=== PATIENT | female | born 1995 | race Caucasian/White ===

== ENCOUNTER 2018-01-06 05:42 | Emergency (ER) | payer OTHER ==
[2018-01-06 05:56] VITALS: RESP 18
[2018-01-06] MEDS ORDERED: LORazepam 2 MG/ML INJ IV STA (06:23)
[2018-01-06] MEDS ORDERED: MORPHINE SULFATE 2 MG/ML SYRINGE IVP STA (06:23)
[2018-01-06] MEDS ORDERED: ONDANSETRON 4 MG/2 ML VIAL IVP STA (06:23)
[2018-01-06] MEDS ORDERED: LIDOCAINE/EPINEPHR/TETRACAINE 5 ML BOTTLE TOPICAL ONE (06:24)
[2018-01-06] MEDS ORDERED: SODIUM CHLORIDE 0.9% 1,000 ML IV STA (06:25)
--- NOTE | 2018-01-06 06:30 | ED ---
General Adult HPI - General Chief complaint: Skin/Abscess/Foreign Body Stated complaint: Female Time Seen by Provider: 01/06/18 06:12 Source: patient, RN notes reviewed Mode of arrival: ambulatory Limitations: no limitations - History of Present Illness Initial comments: 22-year-old female presenting to the emergency room today with a chief complaint of abscess to the right side labia externa that began 4 days ago. Patient states that noticed a small bump some swelling. Does admit that she went to [facility] yesterday proximally 6 PM. Patient states that the area was drained. They went home. States that began having increased pain. States area is more swollen today. Fianc at bedside stating that started having or click movements started at night. Patient admits that some pain. Denies any other complaints or symptoms. Patient did not begin antibiotics that were prescribed because pharmacy was closed. Patient denies any recent fever, chills, shortness of breath, chest pain, back pain, abdominal pain, nausea or vomiting, constipation or diarrhea, headaches or visual changes, or any other complaints. - Related Data Allergies Allergy/AdvReac Type Severity Reaction Status Date / Time No Known Allergies Allergy Verified 01/06/18 05:57 Review of Systems ROS Statement: Those systems with pertinent positive or pertinent negative responses have been documented in the HPI. ROS Other: All systems not noted in ROS Statement are negative. Past Medical History Past Medical History: No Reported History History of Any Multi-Drug Resistant Organisms: None Reported Past Surgical History: No Surgical Hx Reported Past Psychological History: Anxiety Smoking Status: Current every day smoker Past Alcohol Use History: Rare Past Drug Use History: Marijuana General Exam - General Exam Comments Initial Comments: General: The patient is awake and alert, in no distress, and does not appear acutely ill. Eye: Pupils are equal, round and reactive to light, extra-ocular movements are intact. No nystagmus. There is normal conjunctiva bilaterally. No signs of icterus. Ears, nose, mouth and throat: There are moist mucous membranes and no oral lesions. Neck: The neck is supple, there is no tenderness or JVD. Musculoskeletal: Normal ROM, no tenderness. Strength 5/5. Sensation intact. Pulses equal bilaterally 2+. Neurological: A&O x 3. CN II-XII intact, There are no obvious motor or sensory deficits. Coordination appears grossly intact. Speech is normal. Skin: Skin is warm and dry and no rashes or lesions are noted. Psychiatric: Cooperative, appropriate mood & affect, normal judgment. : SANITARIAN Janna present for exam. Patient does have abscess to the right side external labia measuring approximately 1-2 cm x 1 cm. Incision centrally in this area with no active drainage. Limitations: no limitations Course Vital Signs 01/06/18 01/06/18 05:50 07:18 Temperature 98 F Pulse Rate 126 H 102 H Respiratory 18 18 Rate Blood Pressure 162/100 119/62 O2 Sat by Pulse 98 99 Oximetry Procedures - Procedures Initial comment: SANITARIANNITISH Mccormick present for procedure. Patient has a Bartholin's cyst on the right side. Area was anesthetized locally with topical lidocaine and also 1% lidocaine locally to the area. There was a previous incision site. 11 blade was used to reopen this area. A moderate amount of drainage was removed. Purulent Type drainage. A Word's catheter was inserted. Patient tolerated procedure well Medical Decision Making - Lab Data Result diagrams: 01/06/18 06:44 01/06/18 06:44 Lab Results 01/06/18 01/06/18 Range/Units 06:44 06:44 WBC 10.3 (3.8-10.6) k/uL RBC 4.72 (3.80-5.40) m/uL Hgb 13.2 (11.4-16.0) gm/dL Hct 38.9 (34.0-46.0) % MCV 82.5 (80.0-100.0) fL MCH 28.0 (25.0-35.0) pg MCHC 33.9 (31.0-37.0) g/dL RDW 15.3 (11.5-15.5) % Plt Count 279 (150-450) k/uL Neutrophils % 59 % Lymphocytes % 30 % Monocytes % 6 % Eosinophils % 4 % Basophils % 1 % Neutrophils # 6.0 (1.3-7.7) k/uL Lymphocytes # 3.1 (1.0-4.8) k/uL Monocytes # 0.6 (0-1.0) k/uL Eosinophils # 0.4 (0-0.7) k/uL Basophils # 0.1 (0-0.2) k/uL Sodium 142 (137-145) mmol/L Potassium 4.3 (3.5-5.1) mmol/L Chloride 108 H (98-107) mmol/L Carbon Dioxide 24 (22-30) mmol/L Anion Gap 10 mmol/L BUN 15 (7-17) mg/dL Creatinine 0.64 (0.52-1.04) mg/dL Est GFR (CKD-EPI)AfAm >90 (>60 ml/min/1.73 sqM) Est GFR (CKD-EPI)NonAf >90 (>60 ml/min/1.73 sqM) Glucose 85 (74-99) mg/dL Calcium 9.0 (8.4-10.2) mg/dL Total Bilirubin 0.2 (0.2-1.3) mg/dL AST 19 (14-36) U/L ALT 30 (9-52) U/L Alkaline Phosphatase 63 (38-126) U/L Total Protein 6.8 (6.3-8.2) g/dL Albumin 3.9 (3.5-5.0) g/dL Disposition Clinical Impression: Bartholin's gland abscess Disposition: HOME SELF-CARE Condition: Good Instructions: Abscess (ED) Additional Instructions: Please allow the catheter to fall out on its own. Please continue previously prescribed antibiotic. Please follow-up the family doctor/HEALTH PLAN MANAGER over the next 2 days if there is not improvement. Please return here to the emergency room symptoms increase or worsen. Is patient prescribed a controlled substance at d/c from ED?: No Referrals: None,Stated [Primary Care Provider] - 1-2 days Guille Yuan DO [STAFF PHYSICIAN] - 1-2 days Viola Salcedo MD [STAFF PHYSICIAN] - 1-2 days Time of Disposition: 08:08
[2018-01-06 07:27] LABS: Basophils # (A) 0.1 k/uL (0-0.2); Basophils % (A) 1 %; Eosinophils # (A) 0.4 k/uL (0-0.7); Eosinophils % (A) 4 %; HCT 38.9 % (34.0-46.0); HGB 13.2 gm/dL (11.4-16.0); Lymphocytes # (A) 3.1 k/uL (1.0-4.8); Lymphocytes % (A) 30 %; MCHC 33.9 g/dL (31.0-37.0); MCV 82.5 fL (80.0-100.0); Mean Platelet Volume 6.5; Monocytes # (A) 0.6 k/uL (0-1.0); Monocytes % (A) 6 %; Neutrophils % (A) 59 %; Platelet Count 279 k/uL (150-450); RBC 4.72 m/uL (3.80-5.40); RDW 15.3 % (11.5-15.5); WBC 10.3 k/uL (3.8-10.6)
[2018-01-06 07:37] LABS: ALT 30 U/L (9-52); AST 19 U/L (14-36); Albumin 3.9 g/dL (3.5-5.0); Alkaline Phosphatase 63 U/L (38-126); Anion Gap 10 mmol/L; Blood Urea Nitrogen 15 mg/dL (7-17); Carbon Dioxide 24 mmol/L (22-30); Chloride 108 mmol/L (98-107); Glucose 85 mg/dL (74-99); Potassium 4.3 mmol/L (3.5-5.1); Sodium 142 mmol/L (137-145); Total Bilirubin 0.2 mg/dL (0.2-1.3); Total Protein 6.8 g/dL (6.3-8.2)
[2018-01-06] MEDS ORDERED: LIDOCAINE 1% INJ 10MG/ML (20 ML MDV) SQ STA (07:38)
[2018-01-06] MEDS ORDERED: SULFAMETH-TMP DS STARTER PACK 2 TAB BTL PO STA (08:06)
[2018-01-06 08:31] VITALS: BP 131/65; PULSE 91; TEMP 98.2
== END 2018-01-06 08:36 | disposition home or self-care (01) ==
LOC: EC 05:42
DX: N75.1 Abscess of Bartholin's gland (principal); F17.200 Nicotine dependence, unspecified, uncomplicated
CPT/HCPCS: 99283; 56420; 96374; 96375 ×2; 36415; 80053; 85025; J2060; J2405; J2001; J2270

== ENCOUNTER → 2019-08-17 | Outpatient (CLI) | payer BC ==
--- NOTE | 2019-08-17 12:48 | US ---
EXAMINATION TYPE: US abdomen limited DATE OF EXAM: 08/17/2019 COMPARISON: NONE CLINICAL HISTORY: B18.2 Chronic viral Hepatitis C. EXAM MEASUREMENTS: Liver Length: 13.7cm Gallbladder Wall: 0.1 cm CBD: 0.3 cm Right Kidney: 11.3 x 3.9 x 5.4 cm Pancreas: wnl Liver: wnl Gallbladder: wnl Evidence for sonographic Navas's sign: no CBD: wnl Right Kidney: wnl IMPRESSION: No distinct abnormality seen.
[2019-08-17 13:58] LABS: Basophils % (A) 1 %; Eosinophils # (A) 0.5 k/uL (0-0.7); Eosinophils % (A) 9 %; HCT 44.2 % (34.0-46.0); HGB 14.3 gm/dL (11.4-16.0); Lymphocytes # (A) 1.8 k/uL (1.0-4.8); Lymphocytes % (A) 35 %; MCH 28.7 pg (25.0-35.0); MCHC 32.3 g/dL (31.0-37.0); MCV 88.9 fL (80.0-100.0); Mean Platelet Volume 7.2; Monocytes # (A) 0.3 k/uL (0-1.0); Monocytes % (A) 6 %; Neutrophils # (A) 2.4 k/uL (1.3-7.7); Neutrophils % (A) 47 %; Platelet Count 242 k/uL (150-450); RBC 4.98 m/uL (3.80-5.40); WBC 5.1 k/uL (3.8-10.6)
[2019-08-17 14:06] LABS: Prothrombin Time 10.8 sec (9.0-12.0)
[2019-08-17 14:09] LABS: Bilirubin, Delta 0.3 mg/dL (0.0-0.2); Bilirubin,Unconjugated 0.2 mg/dL (0.0-1.1); Total Bilirubin 0.5 mg/dL (0.2-1.3)
[2019-08-17 19:15] LABS: Hepatitis A Antibody IgM Non-Reactive (Non-Reactive); Hepatitis B Core IgM Non-Reactive (Non-Reactive); Hepatitis B Surface Antigen Non-Reactive (Non-Reactive); Hepatitis C IgG Antibody Reactive (Non-Reactive)
[2019-08-18 14:36] LABS: HCV Qualitative Result DETECTED (Not detected); HCV Quant Log 1.82 (<1.08); HCV Quantitative Result 66 IU/mL (<12)
== END | disposition home or self-care (01) ==
LOC: RADUSWWP 11:58
PROVIDERS: ATTEND Internal Medicine Gastroenterology
DX: B18.2 Chronic viral hepatitis C (principal)
CPT/HCPCS: 76705; 80074; 80076; 81596; 85025; 85610; 87522

== ENCOUNTER → 2020-02-16 | Outpatient (CLI) | payer BC ==
[2020-02-16 11:23] LABS: Basophils % (A) 1 %; Eosinophils # (A) 0.4 k/uL (0-0.7); Eosinophils % (A) 7 %; HCT 43.7 % (34.0-46.0); HGB 14.8 gm/dL (11.4-16.0); Lymphocytes # (A) 1.9 k/uL (1.0-4.8); Lymphocytes % (A) 30 %; MCV 88.1 fL (80.0-100.0); Monocytes # (A) 0.3 k/uL (0-1.0); Monocytes % (A) 5 %; Neutrophils # (A) 3.5 k/uL (1.3-7.7); Neutrophils % (A) 56 %; Platelet Count 201 k/uL (150-450); RBC 4.95 m/uL (3.80-5.40); RDW 12.7 % (11.5-15.5); WBC 6.2 k/uL (3.8-10.6)
[2020-02-16 17:48] LABS: Albumin 4.3 g/dL (3.80-4.90); Albumin/Globulin Ratio 1.79 (1.60-3.17); Bilirubin, Conjugated 0.2 mg/dL (0.20-0.40); Bilirubin,Unconjugated 0.2 mg/dL; Globulin 2.4 g/dL (1.6-3.3); Total Bilirubin 0.4 mg/dL (0.2-1.2); Total Protein 6.7 g/dL (6.2-8.2)
== END | disposition home or self-care (01) ==
LOC: LABWHC1 10:27
PROVIDERS: ATTEND Physician Assistant
DX: B18.2 Chronic viral hepatitis C (principal)
CPT/HCPCS: 36415; 80076; 85025; 87522

== ENCOUNTER 2024-05-20 23:35 | Emergency (ER) | payer BC ==
--- NOTE | 2024-05-21 00:22 | ED ---
Back Pain HPI - General Chief Complaint: Back Pain/Injury Stated Complaint: Back pain, KENDALL Time Seen by Provider: 05/20/24 23:42 Source: patient, RN notes reviewed, old records reviewed Limitations: no limitations - History of Present Illness Initial Comments: There is a 29-year-old female to the ER for evaluation of back pain right lateral spine back pain with no traumatic injury noted. No shortness of breath no cough or congestion no fever or any changes. Patient presented which is back pain worse with movement MD Complaint: back pain -: days(s) Similar Symptoms Previously: Yes Place: home Radiation: none Severity: moderate Severity scale (1-10): 6 Quality: sharp, aching Consistency: constant, intermittent Improves With: none Worsens With: movement Context: while lifting, turning/twisting - Related Data Home Medications Medication Instructions Recorded Confirmed No Known Home Medications 01/06/18 01/06/18 Allergies Allergy/AdvReac Type Severity Reaction Status Date / Time No Known Allergies Allergy Verified 05/20/24 23:39 Review of Systems ROS Statement: Those systems with pertinent positive or pertinent negative responses have been documented in the HPI. ROS Other: All systems not noted in ROS Statement are negative. Past Medical History Past Medical History: No Reported History History of Any Multi-Drug Resistant Organisms: None Reported Past Surgical History: No Surgical Hx Reported Past Psychological History: Anxiety Smoking Status: Current every day smoker Past Alcohol Use History: Rare Past Drug Use History: Marijuana General Exam Limitations: no limitations General appearance: alert, in no apparent distress Head exam: Present: atraumatic, normocephalic, normal inspection Eye exam: Present: normal appearance, PERRL, EOMI. Absent: scleral icterus, conjunctival injection, periorbital swelling ENT exam: Present: normal exam, mucous membranes moist Neck exam: Present: normal inspection. Absent: tenderness, meningismus, lymphadenopathy Respiratory exam: Present: normal lung sounds bilaterally. Absent: respiratory distress, wheezes, rales, rhonchi, stridor Cardiovascular Exam: Present: regular rate, normal rhythm, normal heart sounds. Absent: systolic murmur, diastolic murmur, rubs, gallop, clicks GI/Abdominal exam: Present: soft, normal bowel sounds. Absent: distended, tenderness, guarding, rebound, rigid Extremities exam: Present: normal inspection, full ROM, normal capillary refill. Absent: tenderness, pedal edema, joint swelling, calf tenderness Back exam: Present: normal inspection Neurological exam: Present: alert, oriented X3, CN II-XII intact Psychiatric exam: Present: normal affect, normal mood Skin exam: Present: warm, dry, intact, normal color. Absent: rash Course Vital Signs 05/20/24 23:39 Temperature 97.8 F Pulse Rate 82 Respiratory 18 Rate Blood Pressure 120/78 O2 Sat by Pulse 99 Oximetry - Reevaluation(s) Reevaluation #1: 05/21/24 00:21 Records reviewed Reevaluation #2: 05/21/24 00:21 Patient symptoms improved Reevaluation #3: 05/21/24 00:21 Patient informed of results and questions answered Reevaluation #4: Was pt. sent in by a medical professional or institution (JAZMIN Jerry, HYPOID GEAR GENERATOR, urgent care, hospital, or prison...) When possible be specific @ -no Did you speak to anyone other than the patient for history (EMS, parent, family, police, friend...)? What history was obtained from this source @ -no Did you review nursing and triage notes (agree or disagree)? Why? @ -agree Are old charts reviewed (outside hosp., previous admission, EMS record, old EKG, old radiological studies, urgent care reports/EKG's, prison records)? Report findings @ -yes Differential Diagnosis (chest pain, altered mental status, abdominal pain women, abdominal pain men, vaginal bleeding, weakness, fever, dyspnea, syncope, headache, dizziness, GI bleed, back pain, seizure, CVA, palpatations, mental health, musculoskeletal)? @ -prior EKG interpreted by me (3pts min.). @ -yes X-rays interpreted by me (1pt min.). @ -yes negative for acute disease CT interpreted by me (1pt min.). @ -no U/S interpreted by me (1pt. min.). @ -no What testing was considered but not performed or refused? (CT, X-rays, U/S, labs )? Why? @ -none What meds were considered but not given or refused? Why? @ -none Did you discuss the management of the patient with other professionals (professionals i.e. JAZMIN Jerry, HYPOID GEAR GENERATOR, lab, RT, psych nurse, social studies teacher, field artillery radar operator, teacher, systems support officer, pillowcase folder)? Give summary @ -no Was smoking cessation discussed for >3mins.? @ -no Was critical care preformed (if so, how long)? @ -no Were there social determinants of health that impacted care today? How? (Homelessness, low income, unemployed, alcoholism, drug addiction, transportation, low edu. Level, literacy, decrease access to med. care, group home, rehab)? @ -none Was there de-escalation of care discussed even if they declined (Discuss DNR or withdrawal of care, Hospice)? DNR status @ -no What co-morbidities impacted this encounter? (DM, HTN, Smoking, COPD, CAD, Cancer, CVA, ARF, Chemo, Hep., AIDS, mental health diagnosis, sleep apnea, morbid obesity)? @ -none Was patient admitted / discharged? Hospital course, mention meds given and route, prescriptions, significant lab abnormalities, going to OR and other pertinent info. @ - Undiagnosed new problem with uncertain prognosis? @ -no Drug Therapy requiring intensive monitoring for toxicity (Heparin, Nitro, Insulin, Cardizem)? @ -no Were any procedures done? @ -no Diagnosis/symptom? @ - Acute, or Chronic, or Acute on Chronic? @ -Acute Uncomplicated (without systemic symptoms) or Complicated (systemic symptoms)? @ -Complicated Side effects of treatment? @ -no Exacerbation, Progression, or Severe Exacerbation? @ -exacerbation Poses a threat to life or bodily function? How? (Chest pain, [place], [place], pneumonia, PE, COPD, DKA, ARF, appy, cholecystitis, CVA, Diverticulitis, Homicidal, Suicidal, threat to staff... and all critical care pts) @ -yes Reevaluation #5: 05/21/24 00:22 Differential Back Pain: Strain, zoster, cauda equina syndrome, epidural abscess, vertebral osteomyelitis, discitis, fracture, subluxation, disc herniation, DJD, spinal stenosis, dissection, AAA, pancreatitis, peptic ulcer disease, pyelonephritis, kidney stone, this is not meant to be an all-inclusive list. Differential Chest Pain: Stable Angina, Unstable Angina, STEMI, NSTEMI Aortic Dissection, Pneumothorax, Musculoskeletal, Esophageal Spasm GERD, Cholecystitis, Pancreatitis, Zoster, this is not meant to be an all-inclusive list. Medical Decision Making - Medical Decision Making 29 female nonspecific back. Patient given anti-inflammatories and can be discharged home - Radiology Data Radiology results: report reviewed (Chest x-ray is negative for acute disease), image reviewed Disposition Clinical Impression: Thoracic back pain, Mid back pain Disposition: HOME SELF-CARE Condition: Good Instructions (If sedation given, give patient instructions): Back Pain (ED) Is patient prescribed a controlled substance at d/c from ED?: No Referrals: None,Stated [Primary Care Provider] - 1-2 days Time of Disposition: 00:30
[2024-05-21] MEDS: KETOROLAC 15 MG/ML 1 ML VIAL IM STA (00:27)
[2024-05-21] MEDS: ACETAMINOPHEN TAB 500 MG TAB PO STA (00:27)
[2024-05-21] MEDS: IBUPROFEN 600 MG STARTER PACK 4 TAB BTL PO STA (00:45)
[2024-05-21] MEDS: traMADol 50 MG STARTER PACK 3 TAB BTL PO STA (00:46)
[2024-05-21 00:57] VITALS: BP 122/81; PULSE 90; RESP 17; TEMP 97.9
--- NOTE | 2024-05-21 02:30 | XR ---
EXAM: XR Chest, 2 Views CLINICAL HISTORY: ITS.REASON XR Reason: cp TECHNIQUE: Frontal and lateral views of the chest. COMPARISON: None FINDINGS: Hardware: None. Lungs/pleura: Normal. No focal consolidation. No pleural effusion or pneumothorax. Heart/mediastinum: Normal. No cardiomegaly. Soft tissues: Unremarkable. Bones: No acute fracture. Upper abdomen: Normal. IMPRESSION: No acute disease identified.
== END 2024-05-21 01:09 | disposition home or self-care (01) ==
LOC: EC 23:35
DX: M54.6 Pain in thoracic spine (principal); F17.200 Nicotine dependence, unspecified, uncomplicated
CPT/HCPCS: 99283; 96372; 71046; J1885